=== PATIENT | female | born 1940 | race African-American/Black ===

== ENCOUNTER → 2016-11-20 | Outpatient (CLI) | payer MEDICARE, OTHER ==
[~2016-11-20] MED LIST: ACAI500 MG; BAYER ASPIRIN325 M1 PO; CALCIUM 500 +1 EAC6 PO; CENTRUM SILVER1 EAC2 PO; CLARITIN10 M3; COD LIVER OIL1 EAC1; FIBER LAXATIV0.52 GM; FISH OIL 1,2001 EAC1 PO; IRON45 MG; LASIX PO; LOSARTAN POTASS50 MG PO; MOTRIN600 M1 PO; NEURONTIN; PAXIL PO; POTASSIUM99 M2 PO; PRILOSEC PO; TENORMIN50 MG PO; VITAMIN B122500 MCG; VITAMIN B650 MG; VITAMIN C1000 M2 PO; VITAMIN D35000 UNIT PO
[2016-11-20 13:17] LABS: HEMATOCRIT 38.3 % (35.0-45.0); HEMOGLOBIN 12.4 gm/dL (12.0-16.0); MEAN CELL VOLUME 105.7 FL (83-96); MEAN CORPUSCULAR HEMOGLOBIN 34.2 PG (28-34); MEAN CORPUSCULAR HGB CONC 32.3 g/dL (30-36); MEAN PLATELET VOLUME 6.7 FL (6.5-11.5); RED BLOOD COUNT 3.63 X10e (3.90-5.30); RED CELL DISTRIBUTION WIDTH 13.1 % (11.0-15.5); WHITE BLOOD COUNT 7.4 X10e3 (4.0-10.5)
[2016-11-20 13:23] LABS: URINE APPEARANCE CLEAR; URINE BILIRUBIN NEG (NEG); URINE BLOOD NEG (NEG); URINE COLOR YELLOW; URINE GLUCOSE NEG (NEG); URINE KETONE TRACE (NEG); URINE LEUKOCYTE ESTERASE NEG (NEG); URINE NITRATE NEG (NEG); URINE PH 5.5 (5-8); URINE PROTEIN NEG (NEG); URINE SPECIFIC GRAVITY 1.023 (1.003-1.035)
[2016-11-20 13:29] LABS: CULTURE INDICATED? NO
[2016-11-20 14:01] LABS: ALBUMIN SERUM 3.6 g/dL (3.5-5.0); BILIRUBIN,TOTAL 0.5 mg/dL (0.2-2.0); BUN/CREATININE RATIO 22.5; CALCIUM SERUM 9.1 mg/dL (8.4-10.2); CREATININE SERUM 0.8 mg/dL (0.6-1.4); GLOM FILT RATE Estimated 84.8 mL/min (>60); PROTEIN TOTAL SERUM 6.7 g/dL (6.0-8.3)
== END | disposition home or self-care (01) ==
LOC: CAMB 12:39
PROVIDERS: Orthopaedic Surgery
DX: Z01.812 Encounter for preprocedural laboratory examination (principal); M75.101 Unspecified rotator cuff tear or rupture of right shoulder, not specified as traumatic
CPT/HCPCS: 36415; 80053; 81003; 85027; 87070

== ENCOUNTER 2016-11-26 05:41 | Inpatient (IN) | payer MEDICARE, OTHER ==
--- NOTE | ~2016-11-26 | CR230 ---
[facility] A Service of [facility] RADIOLOGY TEXT RESULTS PATIENT: SHWETHA PERAZA LOCATION: B 453-01 : 42 UNIT #: [id number] AGE: [address]: Cesar Leigh MD SEX: F ORDER DR: [id number] [place] [address] [facility]. [place], [place] [address] [id number] MR#: [id number] Acc #: [id number] NAME: SHWETHA PERAZA : 1940 SEX: F STUDY DATE/TIME: 11/26/2016 11:23 UNIT: [facility] ROOM: [facility] STUDY DESCRIPTION: CR Shoulder Min 2 View Rt Attending Physician: Cesar Leigh M.D. Referring Physician: Cesar Leigh M.D. Ordering Physician: Alvaro Khan M.D. Primary Care Physician: Danny Roberto M.D. MEDICAL IMAGING REPORT This report is preliminary unless electronic signature is present EXAM Right shoulder, 2 views, 11/26/16, 1123 hours. CLINICAL HISTORY Postop total right shoulder replacement today, shoulder pain. COMPARISON MRI right shoulder, 10/30/16, right shoulder 1-view, 10/23/16. FINDINGS 2 views of the right shoulder demonstrate interval shoulder replacement with a screwed ball component at the glenoid and a long stem noncemented cup component at the humerus in anatomic alignment. Surgical drain is present. IMPRESSION Postop right shoulder surgery today with screwed ball component at the glenoid and long stem noncemented cup component at the humerus in anatomic alignment. A surgical drain is present. No fracture is seen. Dictated by... Kristyn De La Cruz M.D. THIS IS AN ELECTRONICALLY VERIFIED REPORT Kristyn De La Cruz M.D. at 11/27/2016 9:25 AM SUSAN/daphnie TD: 11/26/2016 15:31 JOB #: [id number] MEDICAL IMAGING REPORT [facility] A Service of [facility] RADIOLOGY TEXT RESULTS PATIENT: SHWETHA PERAZA LOCATION: C4 453-01 : 42 UNIT #: [id number] AGE: [address]: Cesar Leigh MD SEX: F ORDER DR: Page 1 of 1 COPY
--- NOTE | ~2016-11-26 | OR ---
Unit #: [id number] #: [id number] Patient: SHWETHA SILVER [id number] [address] [address] [id number] I MR#: [id number] NAME: SHWETHA SILVER ROOM: [facility] Date of Procedure: 11/26/2016 Admission Date: 11/26/2016 Surgeon: Cesar Leigh M.D. : 1940 Attending Physician: Cesar Leigh M.D. Referring Physician: Cesar Leigh M.D. Primary Care Physician: Danny Roberto M.D. OPERATIVE REPORT PREOPERATIVE DIAGNOSIS Right shoulder cuff tear arthropathy. POSTOPERATIVE DIAGNOSES 1. Right shoulder cuff tear arthropathy. 2. Right shoulder biceps tenosynovitis. PROCEDURES PERFORMED 1. Right reverse shoulder arthroplasty. 2. Right shoulder biceps tenodesis. IMPLANTS 1. DJO Surgical size 8 press-fit humeral stem with a 36, neutral humeral socket liner. 2. DJO Surgical P2 baseplate with a 36 neutral glenosphere. SU[employer] Jelly López APRN, SUPA. ANESTHESIA General with interscalene nerve block. DRAINS Medium Hemovac x1. ESTIMATED BLOOD LOSS 200 mL. COMPLICATIONS None apparent. INDICATIONS FOR PROCEDURE Ms. Silver is a 75-year-old female with a right shoulder cuff tear arthropathy. She has failed conservative management and elected to proceed with a right reverse shoulder arthroplasty. DESCRIPTION OF PROCEDURE The patient was identified in the preoperative holding area. The operative site was marked. Preoperative antibiotics were administered. A regional block was performed. The patient was brought to the operating room and placed supine on the operating table. A general anesthetic was induced. There was initially some difficulty with IV access. IV access Unit #: [id number] #: [id number] Patient: SHWETHA SILVER was obtained through an external jugular site. There was still positioning difficulty with this in the beach-chair position and therefore, foot IV was obtained. The patient was then prepped and draped in sterile fashion in the beach-chair position. A standard deltopectoral approach was performed. The skin was incised sharply with a 10-blade knife. Dissection carried down to the deltopectoral interval. The interval was identified and the cephalic vein mobilized medially with the pectoralis major muscle. The subdeltoid space was developed. There was a large amount of pseudo-capsular tissue and synovial tissue. This was excised. The subscapularis was partially torn as well. This was identified. The biceps was subluxed medially out of the groove into the subscap. This was identified as well. The biceps was hypertrophied and pathologic appearing. A biceps tenodesis was performed to the superior border of the pectoralis major tendon. The subdeltoid space was then further developed. The subscapularis was taken down directly off bone in a subscapularis peel. The shoulder was then dislocated anteriorly. The humeral head osteophytes were removed. Humeral head osteotomy was then performed in 30 degrees of retroversion. The humerus was then subluxed posteriorly. Attention turned to glenoid exposure. Osteophytes were removed around the periphery of the glenoid, particularly posteriorly. A circumferential capsulolabral release was performed. Once we had adequate glenoid exposure, the centering hole was drilled followed by insertion of the reaming tap. We then reamed with a starter and small reamers to the desired depth. We then inserted the baseplate, which achieved excellent purchase. We placed 4 peripheral locking screws including two 26 mm screws and two 14 mm screws. The trial components were then placed on the baseplate. We did not formally trial of a humeral stem, but rather approximation of the position of the humerus. We selected a 36 neutral glenosphere. We then turned attention back to the humerus. The humerus was dislocated anteriorly. A freehand ball reaming technique was performed. A size 8 humeral stem was opened and impacted in place in 30 degrees of retroversion. We then trialed the standard polyethylene liner and this had good tension and stability. The real implant was then impacted in place and the shoulder reduced. The subscapularis was not repaired. A dilute Betadine soak was performed followed by pulsatile lavage with saline. The wound was then closed over a subdeltoid drain with 0 Vicryl, 2-0 Vicryl, and running Monocryl in the skin. Steri-Strips and sterile dressings were applied. DISPOSITION Stable to the recovery room. Dictated by... Cesar Leigh M.D. SHADI/mario TD: 11/27/2016 02:40 JOB #: [id number] Unit #: [id number] #: [id number] Patient: KARMENSHWETHA OPERATIVE REPORT Page 1 of 1 X Cesar Leigh MD PROCEDURE OPERATIVE NOTE
--- NOTE | ~2016-11-26 | DS ---
Unit #: [id number] #: [id number] Patient: SHWETHA PERAZA [id number] [address] [address] [id number] I MR#: [id number] NAME: SHWETHA PERAZA ROOM: 453 Age: 75 Sex: F Admission Date: 11/26/2016 : 1940 Discharge Date: 11/29/2016 Attending Physician: Cesar Leigh M.D. Referring Physician: Cesar Leigh M.D. Primary Care Physician: Danny Roberto M.D. DISCHARGE SUMMARY ADMISSION DIAGNOSIS Right shoulder cuff tear arthropathy. DISCHARGE DIAGNOSIS Right shoulder cuff tear arthropathy. SECONDARY DIAGNOSES 1. Seasonal allergies. 2. Hypertension. 3. Anxiety/major depressive disorder. 4. Iron deficiency anemia. 5. Gastroesophageal reflux disease. 6. B12 deficiency. 7. Immobility. 8. Vitamin D deficiency. PROCEDURES THIS HOSPITALIZATION Right reverse shoulder arthroplasty on 11/26/2016. ADMISSION HISTORY Briefly, Ms. Peraza is a 75-year-old female with a longstanding history of right shoulder cuff tear arthropathy. She has failed conservative management. She has elected to proceed with definitive surgical intervention. HOSPITAL COURSE The patient was taken to the operating room on the day of admission on 11/26/2016 for an elective right reverse shoulder arthroplasty. For full details, please see dictated operative note. The procedure was performed and she tolerated the procedure well without any adverse anesthetic events. She was admitted to orthopedic surgery floor postoperatively. The night of surgery was unremarkable. Her pain was well controlled with a preoperative regional anesthetic block as well as with p.r.n. Dilaudid and Percocet. She has gradually been weaned down to oral Percocet only and currently is doing well with no significant pain in the right shoulder. She had difficulty mobilizing postoperatively. On postoperative day number one she was unable to transfer out of bed by herself. She required full assist from physical therapy. She typically ambulates with a walker. She is now up and out of bed and minimally ambulatory, but with heavy assistance. Physical therapy has recommended post-acute rehab due to safety concerns at home. Her hemoglobin has remained stable at 9.4 on the day prior to discharge. Unit #: [id number] #: [id number] Patient: SHWETHA PERAZA She is tolerating a regular diet. Her pain is well controlled with oral pain medication. At the current time she is medically stable for transfer to rehab. DISCHARGE INSTRUCTIONS Please see discharge instruction handout. Briefly, the patient should be in a sling to the right upper extremity. She may be out of this three times daily for range of motion of the elbow, wrist and hand and pendulums to the shoulder. She may shower with the operative site covered with an occlusive dressing. She should avoid submerging the affected extremity under water. DISCHARGE MEDICATIONS 1. Claritin 10 mg p.o. b.i.d. 2. Atenolol 50 mg daily. 3. [place] 3/cod liver oil capsule daily. 4. Gabapentin 400 mg p.o. at nighttime. 5. Paxil 20 mg p.o. b.i.d. 6. Fiber supplement p.r.n. b.i.d. 7. Lasix 40 mg p.o. every other day. 8. Losartan 50 mg p.o. daily. 9. Iron carbinol tablet 65 mg p.o. b.i.d. 10. Multivitamin daily. 11. Aspirin 325 mg p.o. daily. 12. Motrin 600 mg p.o. t.i.d. p.r.n. pain. 13. Prilosec 20 mg p.o. b.i.d. 14. Caltrate D p.o. b.i.d. 15. Potassium gluconate supplement b.i.d. 16. Vitamin B12 1000 mcg b.i.d. 17. Vitamin B6 100 mg daily. 18. Vitamin C 1000 mg p.o. b.i.d. 19. Vitamin D3 5000 units b.i.d. 20. Fish oil supplement daily. 21. Percocet 5/325 mg 1 tablet p.o. q.4 h. p.r.n. pain. FOLLOWUP She will follow up on 12/08/2016 as scheduled at [facility], [address]. Dictated by... Cesar Leigh M.D. SHADI/akiko TD: 11/29/2016 10:30 JOB #: [id number] Unit #: [id number] #: [id number] Patient: SHWETHA PERAZA DISCHARGE SUMMARY Page 1 of 1 X Cesar Leigh MD X DISCHARGE SUMMARY
[2016-11-27 03:28] LABS: HEMATOCRIT 31.5 % (35.0-45.0); HEMOGLOBIN 10.5 gm/dL (12.0-16.0); MEAN CORPUSCULAR HGB CONC 33.3 g/dL (30-36); MEAN PLATELET VOLUME 7.2 FL (6.5-11.5); WHITE BLOOD COUNT 7.5 X10e3 (4.0-10.5)
[2016-11-28 03:37] LABS: HEMOGLOBIN 9.4 gm/dL (12.0-16.0); MEAN CELL VOLUME 105.1 FL (83-96); MEAN CORPUSCULAR HEMOGLOBIN 34.3 PG (28-34); MEAN CORPUSCULAR HGB CONC 32.6 g/dL (30-36); MEAN PLATELET VOLUME 7.3 FL (6.5-11.5); RED BLOOD COUNT 2.75 X10e (3.90-5.30); RED CELL DISTRIBUTION WIDTH 13.1 % (11.0-15.5); WHITE BLOOD COUNT 8.4 X10e3 (4.0-10.5)
== END 2016-11-29 13:21 | DRG 483 ==
LOC: CSUR 05:41 → C4B 07:00 → CPACUOF 07:00 → CSUR 07:30 → CPACUOF 09:38 → CSUR 10:00 → C4B 12:00 → CPACUOF 12:00 → C4B 11-29 13:21
PROVIDERS: Orthopaedic Surgery
PROC: 0RRJ00Z Replacement of Right Shoulder Joint with Reverse Ball and Socket Synthetic Substitute, Open Approach (ICD-10-PCS; principal; 2016-11-26 07:30)
DX: M19.011 Primary osteoarthritis, right shoulder (principal); E11.9 Type 2 diabetes mellitus without complications; I10 Essential (primary) hypertension; Z79.84 Long term (current) use of oral hypoglycemic drugs; G47.30 Sleep apnea, unspecified; Z90.49 Acquired absence of other specified parts of digestive tract; Z98.51 Tubal ligation status; M75.121 Complete rotator cuff tear or rupture of right shoulder, not specified as traumatic; F41.9 Anxiety disorder, unspecified; M65.811 Other synovitis and tenosynovitis, right shoulder; F32.9 Major depressive disorder, single episode, unspecified; D50.9 Iron deficiency anemia, unspecified; K21.9 Gastro-esophageal reflux disease without esophagitis; M62.3 Immobility syndrome (paraplegic); E53.8 Deficiency of other specified B group vitamins; E55.9 Vitamin D deficiency, unspecified; Z87.891 Personal history of nicotine dependence; Z96.643 Presence of artificial hip joint, bilateral; Z98.84 Bariatric surgery status
CPT/HCPCS: 73030; 82947; 84132; 85027; 94760; 94761; 97110; 97116; 97163; 97530; C1776; G8978-GP; G8979-GP; J0131; J0690; J1170; J2250; J2370; J2405; J2710; J2795; J3010

== ENCOUNTER 2016-12-17 07:33 | Inpatient (IN) | payer MEDICARE, OTHER ==
--- NOTE | ~2016-12-17 | EKG ---
PATIENT: SHWETHA PERAZA UNIT #: [id number] Ventricular Rate: 74 BPM Atrial Rate: 74 BPM P-R Interval: 176 ms QRS Duration: 86 ms Q-T Interval: 396 ms QTC Calculation(Bezet): 439 ms P [place]: 27 degrees Calculated R [place]: -8 degrees Calculated T [place]: -5 degrees Diagnosis Line: Normal sinus rhythm Diagnosis Line: Minimal voltage criteria for LVH, may be normal Diagnosis Line: variant Diagnosis Line: Borderline ECG Diagnosis Line: No previous ECGs available Diagnosis Line: Confirmed by LI MARTIN MD ([id number]) on Diagnosis Line: 12/18/2016 7:21:50 AM INTERPRETING MD: LATOYA
--- NOTE | ~2016-12-17 | DS ---
Unit #: [id number] #: [id number] Patient: SHWETHA SILVER [id number] [address] [place], [place] [address] [id number] I MR#: [id number] NAME: SHWETHA SILVER ROOM: 456 Age: 76 Sex: F Admission Date: 12/17/2016 : 1940 Discharge Date: 12/19/2016 Attending Physician: Cesar Leigh M.D. Primary Care Physician: Danny Roberto M.D. DISCHARGE SUMMARY ADMITTING DIAGNOSIS Right reverse shoulder arthroplasty dislocation. DISCHARGE DIAGNOSIS Right reverse shoulder arthroplasty dislocation status post revision of the humeral component of the right reverse shoulder arthroplasty. SECONDARY DIAGNOSES 1. Seasonal allergies. 2. Hypertension. 3. Anxiety/major depressive disorder. 4. Iron deficiency anemia. 5. Gastroesophageal reflux disease. 6. Vitamin B12 deficiency. 7. Immobility. 8. Vitamin D deficiency. PROCEDURES PERFORMED On 12/17/2016 the patient underwent revision of the humeral component of her right reverse shoulder arthroplasty. Please see operative report for further details. BRIEF HISTORY Ms. Silver is a 76-year-old female who recently underwent a right reverse shoulder arthroplasty. In the postoperative period she developed a dislocation. This was reduced by Dr. Perkins under anesthesia, but then she returned to the office again with an anterior subluxed or (1) implant. She was complaining of mechanical instability symptoms in the office. Dr. Leigh recommended an open reduction with component revision. The risks, benefits and alternatives were discussed with the patient. She elected to proceed with surgery on 12/17/2016. HOSPITAL COURSE On the night of surgery, the patient was transferred to the orthopedic unit. Her vital signs remained stable, and pain was well controlled. On postop day number 1 the patient's vital signs remained stable. She was awake, alert and oriented x3 and in no acute distress. Her incision was clean, dry and intact with no surrounding erythema, warmth or hematoma. She did have 50 mL out of her Hemovac drain overnight. This was discontinued in the room. She was neurovascularly intact in the median, ulnar and radial nerves. She had normal sensation to light touch in all 5 digits. Postop x-rays of the right shoulder revealed that she was status post right reverse shoulder arthroplasty with no dislocations noted on Unit #: [id number] #: [id number] Patient: SHWETHA SILVER x-ray. Her white blood cell count was 8.6, and her hemoglobin was 8.6, as well. Intraoperative wound cultures were pending. She is in SCDs for DVT prophylaxis. PICC line was placed due to difficulty obtaining IV access. The patient worked with physical therapy and was able to get up to the chair for several hours. On postop day number 2 the patient's vital signs remained stable. She was awake, alert and oriented x3 and in no acute distress. Her incision was clean, dry and intact with no surrounding erythema or warmth. There was a moderate amount of swelling surrounding the incision site but no palpable fluctuance. She was neurovascularly intact in the median, ulnar and radial nerves. She had normal sensation to light touch in all 5 digits. Her pain was well controlled. Her white blood cell count was 7.9, and hemoglobin was 8.8. Intraoperative wound cultures showed no growth after 24 hours. She remained nonweightbearing to right upper extremity and in her sling. She continued to work with physical therapy. She remained in SCDs for DVT prophylaxis. CONDITION AT DISCHARGE Stable. DISPOSITION The patient will be discharged back to rehab for help with postoperative care. DISCHARGE MEDICATIONS 1. Neurontin 400 mg p.o. at bedtime. 2. Paxil 20 mg p.o. b.i.d. 3. Claritin 10 mg p.o. b.i.d. 4. Atenolol 50 mg p.o. daily. 5. Fiber laxative 3 tabs p.o. b.i.d. as needed. 6. Lasix 40 mg p.o. every other day. 7. Losartan potassium 50 mg p.o. daily. 8. Iron 65 mg p.o. b.i.d. 9. Multivitamin 1 tab p.o. b.i.d. 10. Aspirin 325 mg p.o. daily. 11. Acai putnam extract capsule 2 tabs p.o. b.i.d. 12. Prilosec 20 mg p.o. b.i.d. 13. Calcium plus vitamin D tab 1 tab p.o. b.i.d. 14. Potassium gluconate 99 mg tab p.o. b.i.d. 15. Vitamin B12 - 1,000 mcg p.o. b.i.d. 16. Vitamin B6 - 100 mg p.o. daily. 17. Vitamin C 1,000 mg p.o. b.i.d. 18. Vitamin D3 - 5,000 units p.o. b.i.d. 19. Percocet 5/325 mg 1-2 tabs p.o. q.4 hours p.r.n., dispense #65. NOTE: The patient was sent to rehab with a prescription for Percocet. DISCHARGE INSTRUCTIONS 1. The patient will be discharged to rehab for postoperative care. 2. She will follow up with Dr. Leigh in 2 weeks' time for repeat x-rays of the right shoulder. 3. She will remain nonweightbearing of the right upper extremity in her sling. She may remove her sling 2 to 3 times per day to perform pendulums, as well as range of motion of the elbow, wrist and hand. 4. She will perform daily dressing changes to the right upper extremity incisions. 5. She may shower but is not to get her incision wet. She must keep an Unit #: [id number] #: [id number] Patient: SHWETHA SILVER occlusive dressing over the incision site when showering. 6. She will apply ice to the right shoulder for 20 minutes every 2 hours. 1. Dictated by... Armida Hayes APRN for Luisana Lind/mendoza TD: 12/19/2016 09:20 JOB #: [id number] DISCHARGE SUMMARY Page 1 of 1 X ARMIDA HAYES APRN X DISCHARGE SUMMARY
--- NOTE | ~2016-12-17 | CR230 ---
[facility] A Service of [facility] RADIOLOGY TEXT RESULTS PATIENT: SHWETHA PERAZA LOCATION: [place] [address] : 42 UNIT #: [id number] AGE: [address]: Cesar Leigh MD SEX: F ORDER DR: [id number] [facility] [address]. [place], [place] [address] [id number] I MR#: [id number] #: [id number] NAME: SHWETHA PERAZA : 1940 SEX: F STUDY DATE/TIME: 12/17/2016 13:22 UNIT: CPACU ROOM: STUDY DESCRIPTION: CR Shoulder Min 2 View Rt Attending Physician: Cesar Leigh M.D. Ordering Physician: Cesar Leigh M.D. Primary Care Physician: Danny Roberto M.D. MEDICAL IMAGING REPORT This report is preliminary unless electronic signature is present EXAM Right shoulder 2 views HISTORY Revision of right shoulder prosthesis FINDINGS Two views are submitted showing a reverse shoulder prosthesis in appropriate position and alignment. Dictated by... Say Hernandez M.D. THIS IS AN ELECTRONICALLY VERIFIED REPORT Say Hernandez M.D. at 12/18/2016 3:22 PM ASIA/harshil TD: 12/17/2016 15:22 JOB #: [id number] MEDICAL IMAGING REPORT Page 1 of 1 COPY
--- NOTE | ~2016-12-17 | OR ---
Unit #: [id number] #: [id number] Patient: SHWETHA PERAZA [id number] [address] [place], [place] [address] [id number] I MR#: [id number] NAME: SHWETHA PERAZA ROOM: 456 Date of Procedure: 12/17/2016 Admission Date: 12/17/2016 Surgeon: Cesar Leigh M.D. : 1940 Attending Physician: Cesar Leigh M.D. Primary Care Physician: Danny Roberto M.D. OPERATIVE REPORT PREOPERATIVE DIAGNOSIS Right reverse shoulder arthroplasty dislocation. POSTOPERATIVE DIAGNOSIS Right reverse shoulder arthroplasty dislocation. PROCEDURES PERFORMED Revision of humeral component, right reverse shoulder arthroplasty. IMPLANTS DJO Surgical +8 humeral buildup with a 36, semiconstrained humeral socket liner. DIRECTOR OF [employer]ADEMIC SUPPORT Jelly López APRN, RNFA. ANESTHESIA General. ESTIMATED BLOOD LOSS 250 mL. INDICATIONS FOR PROCEDURE Ms. Zamorano is a 76-year-old female, who has undergone a previous right reverse shoulder arthroplasty. Unfortunately, she developed a postoperative dislocation. This was reduced by Dr. Perkins under anesthesia, but she then again returned with an anteriorly subluxed or perched implant. She was complaining of mechanical instability type symptoms. An open reduction with component revision was indicated. She elected to proceed. DESCRIPTION OF PROCEDURE The patient was identified in preoperative holding area. The operative site was marked. Preoperative antibiotics were administered. A regional block was performed. The patient was brought to the operating room and placed supine on the operating table. A general anesthetic was induced. The patient was positioned in the beach-chair position. The right arm was prepped and draped in sterile fashion. The previous deltopectoral incision was identified and reopened. Dissection was carried down through the subcutaneous tissues. The previous deltopectoral interval was identified. The cephalic vein was Unit #: [id number] #: [id number] Patient: SHWETHA PERAZA identified. The vein was dissected with Metzenbaum scissors. There was a small perforation created in the vein during the dissection. This had contributed for portion of the blood loss in the procedure as the vein was tied off proximally. The subdeltoid space was developed and the implant exposed. There was a large seroma anteriorly, which was evacuated. There was some membranous tissue around the implant, which appeared to be early formation of the pseudocapsular tissue. There was no gross evidence of infection, but this tissue was taken for culture. The prosthetic joint was found to be reduced and stable on inspection. The arm was taken through range of motion. The shoulder was stable. With lift-off the humeral component, it reduced spontaneously back onto the glenosphere. There was a slight laxity and tension, but appeared fairly satisfactory. The arm was placed into an adducted and extended position. The arm was initially stable. With further deep adduction behind the back essentially in the beach chair in an upward directed force, the shoulder did dislocate. This was a presumed mechanism of dislocation with leaning on her right arm. The decision was made to continue with a revision. The polyethylene liner was removed with osteotomes from the humeral component. We then trialed multiple combinations of various humeral socket liners. We elected to place an +8 adapter plate in a semiconstrained humeral socket liner. Decision was made to leave the glenosphere in place and upsizing this to a 40 mm component. This was going to be of significant benefit. The 40 mm component actually had 2 mm less lateral offset and was felt that this may place at increased risk for dislocation and with the shoulder in the adducted position. The +8 adapter plate was then placed onto the real humeral component. The polyethylene liner was opened and impacted in place. The shoulder was reduced and taken through range of motion. The shoulder was stable with the arm in the adducted and extended position. It was stable otherwise throughout full passive range of motion. The wound was then irrigated with dilute Betadine solution followed by pulsatile lavage. The wound was closed in a layered fashion. The cephalic vein was again perforated during closure. The cephalic vein was scarred in close proximity in the deltopectoral interval and accounted for the remainder of the blood loss in the procedure. Once this was fully ligated again distally, the deltopectoral interval was closed with 0 Vicryl followed by 2-0 Vicryl and gillian in the skin. The wound was closed over a medium Hemovac drain. Sterile dressings were applied. The patient was placed into a shoulder immobilizer. DISPOSITION Aroused from anesthesia and transported to recovery room in stable condition. Dictated by... Luisana Lind/mario TD: 12/18/2016 05:55 JOB #: [id number] Unit #: [id number] #: [id number] Patient: SHWETHA PERAZA OPERATIVE REPORT Page 1 of 1 X Cesar Leigh MD X PROCEDURE OPERATIVE NOTE
--- NOTE | ~2016-12-17 | XA166 ---
[facility] A Service of [facility] & [facility] / [facility] RADIOLOGY TEXT RESULTS PATIENT: SHWETHA PERAZA LOCATION: C4B 456-01 : 42 UNIT #: [id number] AGE: [address]: Cesar Leigh MD SEX: F ORDER DR: [id number] [facility] [address] [place], [place] [address] [id number] MR#: [id number] Acc #: [id number] NAME: SHWETHA PERAZA : 1940 SEX: F STUDY DATE/TIME: 12/18/2016 9:12 UNIT: C4 ROOM: [facility] STUDY DESCRIPTION: XA PICC Line Placement WO Port Attending Physician: Cesar Leigh M.D. Ordering Physician: Cesar Leigh M.D. Primary Care Physician: Danny Roberto M.D. 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 Informed consent was obtained, and prior to initiating the procedure a formal timeout procedure was performed. PROCEDURE Using full standard sterile barrier technique, including caps, gowns, gloves, masks, as well as sterile skin preparation and standard sterile draping, the left arm was prepped and draped in the usual fashion, and real-time sterile ultrasound guidance was used to localize a left arm vein and to confirm vessel patency. A hard copy ultrasound image was recorded. After local anesthesia with 1% Xylocaine, the vein was punctured using real-time sterile ultrasound guidance, and an 0.018 guidewire was advanced into the superior vena cava, using fluoroscopic guidance. A 5-Indonesian dual-lumen PICC was then measured to 42 cm and deployed with the tip positioned at the cavoatrial junction. The position of the line was documented with a radiographic image. The line was secured in place with an adhesive dressing and an antibiotic patch was applied. Total fluoro time was 0.6 minutes. A single fluoroscopic spot image was obtained. IMPRESSION 1. Successful placement of a 5-Indonesian dual-lumen PowerPICC via the left arm under ultrasound and fluoroscopic guidance. The tip of the PICC is in good position at the cavoatrial junction. 2. A single fluoroscopic spot image was obtained. [facility] A Service of [facility] & [facility] / [facility] RADIOLOGY TEXT RESULTS PATIENT: SHWETHA PERAZA LOCATION: [facility] 456- : 42 UNIT #: [id number] AGE: [address]: Cesar Leigh MD SEX: F ORDER DR: Dictated by... Say Hernandez M.D. THIS IS AN ELECTRONICALLY VERIFIED REPORT Say Hernandez M.D. at 12/20/2016 9:32 AM ASIA/siva TD: 12/18/2016 21:58 JOB #: [id number] MEDICAL IMAGING REPORT Page 1 of 1 COPY
[2016-12-17 09:23] LABS: BASOPHIL# 0.1 X10e3 (0-0.3); BASOPHIL% 1.1 % (0-2.5); EOSINOPHIL# 0.3 X10e3 (0-0.7); EOSINOPHIL% 4.1 % (0.0-7.0); HEMATOCRIT 30.7 % (35.0-45.0); LYMPHOCYTE# 1.5 X10e3 (1.0-3.5); LYMPHOCYTE% 21.4 % (17.0-45.0); MEAN CELL VOLUME 104.4 FL (83-96); MEAN CORPUSCULAR HEMOGLOBIN 34.2 PG (28-34); MEAN CORPUSCULAR HGB CONC 32.7 g/dL (30-36); MEAN PLATELET VOLUME 6.3 FL (6.5-11.5); MONOCYTE# 0.5 X10e3 (0-1.0); MONOCYTE% 7.5 % (3.0-12.0); NEUTROPHIL# 4.6 X10e3 (1.5-7.1); NEUTROPHIL% 65.9 % (40-75); PLATELET COUNT 429 X10e3 (140-420); RED BLOOD COUNT 2.94 X10e (3.90-5.30); RED CELL DISTRIBUTION WIDTH 13.3 % (11.0-15.5)
[2016-12-17 09:30] LABS: DIFF IND NO
[2016-12-17 09:48] LABS: ALBUMIN SERUM 2.9 g/dL (3.5-5.0); BILIRUBIN,TOTAL 0.5 mg/dL (0.2-2.0); BUN/CREATININE RATIO 18.88; CALCIUM SERUM 8.6 mg/dL (8.4-10.2); CREATININE SERUM 0.9 mg/dL (0.6-1.4); GLOM FILT RATE Estimated 73.1 mL/min (>60); POTASSIUM 4.4 mmol/L (3.5-5.1); PROTEIN TOTAL SERUM 6.2 g/dL (6.0-8.3)
[2016-12-18 11:35] LABS: BASOPHIL% 0.4 % (0-2.5); EOSINOPHIL# 0.3 X10e3 (0-0.7); EOSINOPHIL% 3.8 % (0.0-7.0); HEMATOCRIT 26.6 % (35.0-45.0); HEMOGLOBIN 8.6 gm/dL (12.0-16.0); LYMPHOCYTE# 1.2 X10e3 (1.0-3.5); MEAN CELL VOLUME 105.5 FL (83-96); MEAN CORPUSCULAR HEMOGLOBIN 34.1 PG (28-34); MEAN CORPUSCULAR HGB CONC 32.3 g/dL (30-36); MEAN PLATELET VOLUME 6.6 FL (6.5-11.5); MONOCYTE# 0.7 X10e3 (0-1.0); NEUTROPHIL# 6.3 X10e3 (1.5-7.1); NEUTROPHIL% 73.8 % (40-75); PLATELET COUNT 367 X10e3 (140-420); RED BLOOD COUNT 2.52 X10e (3.90-5.30); RED CELL DISTRIBUTION WIDTH 13.3 % (11.0-15.5); WHITE BLOOD COUNT 8.6 X10e3 (4.0-10.5)
[2016-12-18 11:36] LABS: DIFF IND YES
[2016-12-18 12:18] LABS: PLATELET ESTIMATE NORMAL (NORMAL)
[2016-12-18 12:19] LABS: ANISOCYTOSIS SL; RBC NORMAL YES
[2016-12-19 03:08] LABS: HEMATOCRIT 26.9 % (35.0-45.0); HEMOGLOBIN 8.8 gm/dL (12.0-16.0); MEAN CELL VOLUME 105.1 FL (83-96); MEAN CORPUSCULAR HEMOGLOBIN 34.2 PG (28-34); MEAN CORPUSCULAR HGB CONC 32.5 g/dL (30-36); MEAN PLATELET VOLUME 6.6 FL (6.5-11.5); RED BLOOD COUNT 2.56 X10e (3.90-5.30); RED CELL DISTRIBUTION WIDTH 13.2 % (11.0-15.5); WHITE BLOOD COUNT 7.9 X10e3 (4.0-10.5)
== END 2016-12-19 17:16 | DRG 483 ==
LOC: CSUR 07:33 → CPACUOF 09:20 → CSUR 09:29 → C4B 09:29 → CSUR 10:00 → C4B 16:40 → CPACUOF 16:40 → C4B 12-19 17:16
PROVIDERS: Nurse Practitioner; Orthopaedic Surgery
PROC: 0RPJ0JZ Removal of Synthetic Substitute from Right Shoulder Joint, Open Approach (ICD-10-PCS; 2016-12-17)
PROC: 02HV33Z Insertion of Infusion Device into Superior Vena Cava, Percutaneous Approach (ICD-10-PCS; 2016-12-17)
PROC: B518YZA Fluoroscopy of Superior Vena Cava using Other Contrast, Guidance (ICD-10-PCS; 2016-12-17)
PROC: B548ZZA Ultrasonography of Superior Vena Cava, Guidance (ICD-10-PCS; 2016-12-17)
PROC: 0RRJ0J6 Replacement of Right Shoulder Joint with Synthetic Substitute, Humeral Surface, Open Approach (ICD-10-PCS; principal; 2016-12-17 10:00)
DX: T84.028A Dislocation of other internal joint prosthesis, initial encounter (principal); E11.9 Type 2 diabetes mellitus without complications; I10 Essential (primary) hypertension; D50.9 Iron deficiency anemia, unspecified; E53.8 Deficiency of other specified B group vitamins; K21.9 Gastro-esophageal reflux disease without esophagitis; Z88.5 Allergy status to narcotic agent; Z88.1 Allergy status to other antibiotic agents; Z88.8 Allergy status to other drugs, medicaments and biological substances; Z87.891 Personal history of nicotine dependence; J30.2 Other seasonal allergic rhinitis; F41.9 Anxiety disorder, unspecified; E55.9 Vitamin D deficiency, unspecified; Z98.49 Cataract extraction status, unspecified eye; M19.90 Unspecified osteoarthritis, unspecified site; Z90.49 Acquired absence of other specified parts of digestive tract; Z96.643 Presence of artificial hip joint, bilateral; Z96.653 Presence of artificial knee joint, bilateral
CPT/HCPCS: 73030; 76937; 77001; 80053; 82947; 85025; 85027; 87070; 87075; 87205; 93005; 94760; 94761; 94762; 97110; 97116; 97162; 97530; 97535; C1713; C1751; G8978-GP; G8979-GP; J0330; J0690; J2250; J2710; J3010

== ENCOUNTER → 2017-01-07 | Day surgery (SDC) | payer MEDICARE, OTHER ==
--- NOTE | ~2017-01-07 | CR230 ---
[facility] A Service of [facility] & [facility] RADIOLOGY TEXT RESULTS PATIENT: SHWETHA PERAZA LOCATION: [facility] : 42 UNIT #: [id number] AGE: [address]: Cesar Leigh MD SEX: F ORDER DR: [id number] [facility] [address] [place], [place] [address] [id number] O MR#: [id number] Acc #: [id number] NAME: SHWETHA PERAZA : 1940 SEX: F STUDY DATE/TIME: 01/07/2017 12:16 UNIT: [facility] ROOM: STUDY DESCRIPTION: CR Shoulder Min 2 View Rt Attending Physician: Cesar Leigh M.D. Referring Physician: Cesar Leigh M.D. Ordering Physician: Cesar Leigh M.D. Primary Care Physician: Danny Roberto M.D. MEDICAL IMAGING REPORT This report is preliminary unless electronic signature is present EXAM C-arm fluoroscopy with 2 permanent images of the right shoulder 01/07/2017 HISTORY Closed reduction right shoulder in OR. Right shoulder dislocation on 01/05/2017. FINDINGS C-arm fluoroscopy was provided for use in the operating room. 2 spot film radiographs of the right shoulder were obtained in the anterior projection and 0.39 minutes of fluoroscopy time was utilized. Exam shows a right shoulder arthroplasty in normal apposition compared with 01/05/2017. No fracture is seen. Dictated by... Cesar Trevino M.D. THIS IS AN ELECTRONICALLY VERIFIED REPORT Cesar Trevino M.D. at 01/08/2017 2:25 PM KRT/pcl TD: 01/07/2017 16:02 JOB #: [id number] MEDICAL IMAGING REPORT Page 1 of 1 COPY
--- NOTE | ~2017-01-07 | OR ---
Unit #: [id number] #: [id number] Patient: SHWETHA PERAZA [id number] [address] [place], [place] [address] [id number] O MR#: [id number] NAME: SHWETHA PERAZA ROOM: Date of Procedure: 01/07/2017 Admission Date: 01/07/2017 Surgeon: Cesar Leigh M.D. : 1940 Attending Physician: Cesar Leigh M.D. Referring Physician: Cesar Leigh M.D. Primary Care Physician: Danny Roberto M.D. OPERATIVE REPORT PREOPERATIVE DIAGNOSIS Right dislocated reverse shoulder arthroplasty. POSTOPERATIVE DIAGNOSIS Right dislocated reverse shoulder arthroplasty. PROCEDURE PERFORMED Closed reduction of right dislocated reverse shoulder replacement. ANESTHESIA General. ESTIMATED BLOOD LOSS Not applicable. INDICATIONS Ms. Killian is a 76-year-old female, who has undergone a right reverse shoulder arthroplasty. She dislocated postoperatively and underwent a closed reduction by Dr. Perkins. She unfortunately dislocated again and underwent a component exchange increasing a humeral length. Despite what was successful trialing in the operating room, she again returned with an unstable shoulder dislocated anteriorly. Rather than proceed directly to an other revision, we have discussed an attempted trial of closed reduction as her shoulder was extremely stable intraoperatively. She elected to proceed. DESCRIPTION OF PROCEDURE The patient was identified in the preoperative holding area. The operative site was marked. The patient was brought to the operating room by Anesthesia personnel and placed supine on the operating table. A general anesthetic was induced. The patient was essentially a masked general case. We did not intubate and then LMA was not employed. Once adequate sedation was achieved, the right arm was manipulated under C-arm imaging while in the beach chair table. With external rotation, abduction, and a posteriorly directed force, we were able to reduce the glenohumeral socket back onto the glenosphere. This was confirmed under C-arm imaging. The arm was then taken through a range of motion. The elbow was dropped into extension and adduction and external rotation and still did not dislocate. The arm was taken into full internal rotation and an anteriorly directed force applied, still did not dislocate. She was taken up in the abduction and overhead forward elevation of the shoulder was stable. At that point, it was not felt that there was any Unit #: [id number] #: [id number] Patient: SHWETHA PERAZA reason to proceed with a revision as her shoulder was not re-dislocating under anesthesia. The patient was placed back into a shoulder immobilizer. A final image was taken with the C-arm to confirm the shoulder was still intact after sling application. DISPOSITION Aroused from anesthesia and transported to recovery room in stable condition. Dictated by... Luisana Lind/mario TD: 01/08/2017 13:32 JOB #: [id number] OPERATIVE REPORT Page 1 of 1 X Cesar Leigh MD X PROCEDURE OPERATIVE NOTE
[2017-01-07 10:45] LABS: HEMATOCRIT 32.7 % (35.0-45.0); HEMOGLOBIN 10.5 gm/dL (12.0-16.0); MEAN CELL VOLUME 103.1 FL (83-96); MEAN PLATELET VOLUME 6.5 FL (6.5-11.5); RED BLOOD COUNT 3.17 X10e (3.90-5.30); RED CELL DISTRIBUTION WIDTH 14.2 % (11.0-15.5); WHITE BLOOD COUNT 8.3 X10e3 (4.0-10.5)
[2017-01-07 11:10] LABS: CALCIUM SERUM 8.6 mg/dL (8.4-10.2); GLOM FILT RATE Estimated 64.3 mL/min (>60); POTASSIUM 3.1 mmol/L (3.5-5.1)
== END | disposition home or self-care (01) ==
LOC: CSUR 09:11
PROVIDERS: Orthopaedic Surgery
DX: T84.028A Dislocation of other internal joint prosthesis, initial encounter (principal); Z96.611 Presence of right artificial shoulder joint; Y79.2 Prosthetic and other implants, materials and accessory orthopedic devices associated with adverse incidents; E11.9 Type 2 diabetes mellitus without complications; K21.9 Gastro-esophageal reflux disease without esophagitis; I10 Essential (primary) hypertension
CPT/HCPCS: 73030; 76000; 80048; 82947; 85027; J0330; J2250; J3010